=== PATIENT | male | born 1940 | race Caucasian/White ===

== ENCOUNTER → 2022-12-11 10:42 | Outpatient (CLI) | payer MEDICARE, OTHER, SELFPAY ==
[2022-12-11 13:05] LABS: Prostate Specific Antigen < 0.064 ng/mL (0.10-4.00)
== END ==
PROVIDERS: PCP Internal Medicine; Referring Provider Specialist; Visit Provider Specialist
DX: Z85.46 Personal history of malignant neoplasm of prostate (principal); R39.9 Unspecified symptoms and signs involving the genitourinary system
CPT/HCPCS: 36415; 84153